=== PATIENT | female | born 1985 | race African-American/Black ===

== ENCOUNTER 2016-09-17 17:57 | Emergency (ER) | payer OTHER ==
[~2016-09-17] VITALS: Ht 165.1 cm; Wt 98.9 kg
[~2016-09-17 17:57] MED LIST: ABILIFY5 MG PO; ACYCLOVIR200 MG; ACYCLOVIR400 MG PO; ATARAX,VISTARIL25 MG PO; BACTRIM,SEPT1 TABLET PO; BENTYL20 MG PO; BUSPAR7.5 MG PO; BUTALB-APAP-CA1 EACH PO; DESYREL 150 MG150 MG PO; DESYREL100 MG PO; DESYREL300 MG PO; DOCUSATE SODIU100 MG PO; FERROUS SULFAT325 MG PO; FIORICET,ESG1 TABLET PO; FLUOXETINE HCL20 MG PO; IBUPROFEN800 MG PO; INDERAL80 MG PO; INDOCIN50 MG PO; KEFLEX500 MG PO; LAMICTAL150 M1 PO; LAMISIL250 MG PO; LAMOTRIGINE100 MG PO; LAMOTRIGINE150 MG PO; NAPROXEN SODIU550 MG PO; NOHOMEMEDS; OXAYDO5 MG PO; OXYCODONE-APAP1 EACH PO; PHENAZOPYRIDIN100 MG PO; PHENERGAN-CODE120 ML PO; PRENATAL TABLE1 EAC3 PO; PROTONIX20 MG PO; PROZAC20 MG PO; REGLAN10 MG PO; ROBAXIN750 MG PO; SERTRALINE HCL50 MG PO; TOPIRAMATE25 MG; TOPIRAMATE25 MG PO; TOPIRAMATE50 MG PO; ZANTAC150 MG PO
[2016-09-17] MEDS ORDERED: ZANTAC150 MG PO (19:08)
[2016-09-17] MEDS ORDERED: PREDNISONE20 MG PO (19:08)
[2016-09-17] MEDS ORDERED: BENADRYL50 MG PO (19:08)
[2016-09-17 19:56] VITALS: BP 117/82
== END 2016-09-17 20:00 | disposition home or self-care (01) ==
LOC: EME 17:57
DX: T78.1XXA Other adverse food reactions, not elsewhere classified, initial encounter (principal); L29.9 Pruritus, unspecified; R21 Rash and other nonspecific skin eruption; Z91.013 Allergy to seafood; Z91.040 Latex allergy status; Z88.6 Allergy status to analgesic agent; Z86.14 Personal history of Methicillin resistant Staphylococcus aureus infection; Z87.891 Personal history of nicotine dependence
CPT/HCPCS: 99281; 99284; J1200; J2930; S0028

== ENCOUNTER 2016-11-24 11:52 | Day surgery (SDC) | payer OTHER ==
[~2016-11-24] VITALS: Ht 165.1 cm; Wt 97.1 kg
[~2016-11-24 11:52] MED LIST changes: +BENADRYL50 MG PO; +FIORICET 50-301 EACH PO; +IRON325 M1 PO; +LAMICTAL100 MG PO; +PREDNISONE20 MG PO
[2016-11-24 12:28] VITALS: BP 126/72
[2016-11-24 13:43] LABS: METH RESISTANT S AUREUS PCR NEGATIVE (NEGATIVE); PROBE CHECK PASS; SPECIMEN PROCESSING CONTROL PASS
[2016-11-24] MEDS ORDERED: COLACE100 MG PO (15:24)
[2016-11-24] MEDS ORDERED: PERCOCET 5/31 TABLET PO (15:24)
[2016-11-24 17:35] VITALS: BP 138/90
[2016-11-24 18:35] VITALS: BP 127/77
[2016-11-25 10:10] LABS: INTERNAL CONTROL VALID? YES
== END 2016-11-24 18:50 | disposition home or self-care (01) ==
LOC: SDC
PROVIDERS: Surgery
PROC: 0WUF4JZ Supplement Abdominal Wall with Synthetic Substitute, Percutaneous Endoscopic Approach (ICD-10-PCS; principal; 2016-11-24)
DX: K42.9 Umbilical hernia without obstruction or gangrene (principal); Q79.59 Other congenital malformations of abdominal wall; D64.9 Anemia, unspecified; E66.9 Obesity, unspecified; Z68.36 Body mass index [BMI] 36.0-36.9, adult; F17.200 Nicotine dependence, unspecified, uncomplicated; Z83.3 Family history of diabetes mellitus; Z80.42 Family history of malignant neoplasm of prostate; Z80.3 Family history of malignant neoplasm of breast; Z82.49 Family history of ischemic heart disease and other diseases of the circulatory system; Z88.8 Allergy status to other drugs, medicaments and biological substances; Z91.040 Latex allergy status
CPT/HCPCS: 84703; 87081; 87641; C1781; J0330; J0690; J1100; J1170; J2250; J2405; J2710; J3010

== ENCOUNTER 2016-11-25 22:50 | Emergency (ER) | payer OTHER ==
[~2016-11-25] VITALS: Ht 165.1 cm; Wt 98.5 kg
[~2016-11-25 22:50] MED LIST changes: +COLACE100 MG PO; +PERCOCET 5/31 TABLET PO
[2016-11-25 23:22] LABS: HEMATOCRIT 37.8 % (36.0-46.0); MCH 31.2 PG (29.0-34.0); MCHC 33.6 G/DL (30.0-36.0); MCV 92.9 FL (83-99); MEAN PLAT.VOLUME 10.6 uM^3 (9.5-12.4); PLATELET COUNT 283 K/uL (156-360); RBC DIS.WIDTH-CV 13.5 % (11.8-14.6); RBC DIS.WIDTH-SD 46.5 % (39-53); RED BLOOD COUNT 4.07 M/uL (3.80-5.20); WHITE BLOOD COUNT 6.9 K/uL (4.1-10.2)
[2016-11-25 23:31] LABS: CHLORIDE 108 mEq/L (99-109); POTASSIUM 3.6 mEq/L (3.7-5.4); SODIUM 140 mEq/L (136-147)
[2016-11-25 23:32] LABS: GLUCOSE 97 mg/dL (70-99)
[2016-11-25 23:34] LABS: ANION GAP 8 MEQ/L (2-14)
[2016-11-25 23:36] LABS: GFR ESTIMATE (CALCULATED) > 59 mL/min/
[2016-11-25 23:37] LABS: UREA NITROGEN (BUN) 9 mg/dL (9-23)
[2016-11-25 23:44] LABS: TROP-I INTERPRETATION NEGATIVE; TROPONIN-I < 0.01 ng/mL (0.0-0.30)
[2016-11-26] MEDS ORDERED: PEPCID20 MG PO (03:46)
[2016-11-26] MEDS ORDERED: MOUTH SORE15 ML MM (03:46)
[2016-11-26 03:48] LABS: TOTAL BILIRUBIN 0.3 mg/dL (0.0-1.0)
[2016-11-26 03:49] LABS: ALKALINE PHOSPHATASE 40 IU/L (3-129)
[2016-11-26 03:52] LABS: DIRECT BILIRUBIN 0.1 mg/dL (0.0-0.3)
[2016-11-26 03:53] LABS: LIPASE 47 U/L (1.0-51.0)
[2016-11-26 04:14] VITALS: BP 114/62
== END 2016-11-26 04:27 | disposition home or self-care (01) ==
LOC: EME 22:50
DX: G89.18 Other acute postprocedural pain (principal); R07.89 Other chest pain; J04.0 Acute laryngitis; K20.9 Esophagitis, unspecified; Z87.891 Personal history of nicotine dependence; Z91.040 Latex allergy status; Z88.5 Allergy status to narcotic agent; Z91.018 Allergy to other foods; Z86.14 Personal history of Methicillin resistant Staphylococcus aureus infection
CPT/HCPCS: 71020; 80048; 80076; 81003; 83690; 84484; 85027; 93005; 99281; 99283

== ENCOUNTER 2016-12-15 13:29 | Emergency (ER) | payer OTHER ==
[~2016-12-15] VITALS: Ht 165.1 cm; Wt 96.0 kg
[~2016-12-15 13:29] MED LIST changes: +MOUTH SORE15 ML MM; +PEPCID20 MG PO
[2016-12-15 14:59] LABS: ADD MIUA? YES; BILIRUBIN NEGATIVE; BLOOD SMALL; COLOR YELLOW ((YELLOW)); GLUCOSE (STRIP) NEGATIVE; KETONES NEGATIVE; LEUKOCYTES NEGATIVE; NITRITE NEGATIVE; PROTEIN (STRIP) NEGATIVE; SPECIFIC GRAVITY 1.024 (1.000-1.030); UROBILINOGEN 0.2 MG/DL (0.2-1.0)
[2016-12-15 15:15] LABS: BACTERIA NONE SEEN /HPF; EPITHELIAL CELLS RARE /HPF; MUCUS TRACE /LPF; UCUL ADDED? NO; WHITE BLOOD CELLS 0-5 /HPF (0-5)
[2016-12-15 15:53] LABS: HEMATOCRIT 34.2 % (36.0-46.0); MCH 30.8 PG (29.0-34.0); MCHC 33.6 G/DL (30.0-36.0); MCV 91.7 FL (83-99); PLATELET COUNT 312 K/uL (156-360); RBC DIS.WIDTH-CV 12.2 % (11.8-14.6); RBC DIS.WIDTH-SD 41.1 % (39-53); RED BLOOD COUNT 3.73 M/uL (3.80-5.20); WHITE BLOOD COUNT 6.5 K/uL (4.1-10.2)
[2016-12-15 16:07] LABS: CHLORIDE 109 mEq/L (99-109); POTASSIUM 3.7 mEq/L (3.7-5.4); SODIUM 140 mEq/L (136-147)
[2016-12-15 16:10] LABS: GLUCOSE 93 mg/dL (70-99)
[2016-12-15 16:11] LABS: ANION GAP 7 MEQ/L (2-14)
[2016-12-15 16:12] LABS: TOTAL BILIRUBIN 0.2 mg/dL (0.0-1.0)
[2016-12-15 16:13] LABS: ALKALINE PHOSPHATASE 48 IU/L (3-129); GFR ESTIMATE (CALCULATED) > 59 mL/min/
[2016-12-15 16:14] LABS: UREA NITROGEN (BUN) 8 mg/dL (9-23)
[2016-12-15 16:24] LABS: QUANTITATIVE HCG < 4.0 MIU/ML
[2016-12-15] MEDS ORDERED: PERCOCET 5/31 TABLET PO (18:58)
[2016-12-15 19:12] VITALS: BP 129/77
[2016-12-18] MEDS ORDERED: FEROSUL325 MG PO (15:20)
[2016-12-18] MEDS ORDERED: PROZAC20 MG PO (15:20)
[2016-12-22] MEDS ORDERED: PERCOCET 5/31 TABLET PO (11:36)
== END 2016-12-15 19:13 | disposition home or self-care (01) ==
LOC: EME 13:29
PROVIDERS: Physician Assistant
DX: K91.872 Postprocedural seroma of a digestive system organ or structure following a digestive system procedure (principal); Y83.8 Other surgical procedures as the cause of abnormal reaction of the patient, or of later complication, without mention of misadventure at the time of the procedure; R11.0 Nausea; R14.0 Abdominal distension (gaseous); K59.00 Constipation, unspecified; Z98.890 Other specified postprocedural states; Z86.14 Personal history of Methicillin resistant Staphylococcus aureus infection; Z72.0 Tobacco use
CPT/HCPCS: 74177; 80053; 81003; 84702; 85027; 99281; 99285; J3010; J7030

== ENCOUNTER → 2016-12-22 | Outpatient (CLI) | payer OTHER ==
[~2016-12-22] MED LIST changes: +FEROSUL325 MG PO
[2016-12-22 09:59] LABS: INTER. NORMALIZED RATIO 1.1; PROTHROMBIN TIME 10.7 (9.2-11.2); PTT 29.4 (25-32)
== END | disposition home or self-care (01) ==
LOC: OPR 08:46 → EDSTATUS 09:00 → OPR 09:00
PROVIDERS: Radiology Diagnostic Radiology
PROC: 0W9F3ZZ Drainage of Abdominal Wall, Percutaneous Approach (ICD-10-PCS; principal; 2016-12-22)
DX: M96.842 Postprocedural seroma of a musculoskeletal structure following a musculoskeletal system procedure (principal)
CPT/HCPCS: 77012; 85610; 85730; 87070; 87075; 87205; J2405; J3010

== ENCOUNTER 2017-02-13 13:27 | Emergency (ER) | payer OTHER ==
[~2017-02-13] VITALS: Ht 165.1 cm; Wt 96.8 kg
[2017-02-13 13:40] VITALS: BP 120/82
[2017-02-13] MEDS ORDERED: LAMOTRIGINE200 MG PO (15:14)
[2017-02-13] MEDS ORDERED: MOTRIN800 MG PO (15:27)
[2017-02-13] MEDS ORDERED: VIBRAMYCIN100 MG PO (15:27)
== END 2017-02-13 15:44 | disposition home or self-care (01) ==
LOC: EME 13:27 → RME 13:27
DX: S00.83XA Contusion of other part of head, initial encounter (principal); L03.211 Cellulitis of face; S01.511A Laceration without foreign body of lip, initial encounter; Y04.2XXA Assault by strike against or bumped into by another person, initial encounter; Z91.040 Latex allergy status; Z88.6 Allergy status to analgesic agent; Z91.013 Allergy to seafood
CPT/HCPCS: 70150; 99281; 99283

== ENCOUNTER → 2017-03-05 | Outpatient (CLI) | payer OTHER ==
[~2017-03-05] VITALS: Ht 165.1 cm; Wt 96.6 kg
[~2017-03-05] MED LIST changes: +LAMICTAL200 MG PO; +LAMOTRIGINE200 MG PO; +MOTRIN800 MG PO; +TYLENOL REGULA325 MG PO; +VIBRAMYCIN100 MG PO
== END | disposition home or self-care (01) ==
LOC: AMB 06:58
DX: K29.70 Gastritis, unspecified, without bleeding (principal); B96.81 Helicobacter pylori [H. pylori] as the cause of diseases classified elsewhere; J44.9 Chronic obstructive pulmonary disease, unspecified; F17.210 Nicotine dependence, cigarettes, uncomplicated; K21.9 Gastro-esophageal reflux disease without esophagitis; E66.9 Obesity, unspecified; Z83.3 Family history of diabetes mellitus; Z80.42 Family history of malignant neoplasm of prostate
CPT/HCPCS: 88305; 88342 TC; J2250; J3010

== ENCOUNTER 2017-05-06 05:30 | Day surgery (SDC) | payer OTHER ==
[~2017-05-06] VITALS: Ht 165.1 cm; Wt 100.1 kg
[~2017-05-06 05:30] MED LIST changes: +ZOVIRAX200 MG PO
[2017-05-06 06:42] VITALS: BP 121/58
[2017-05-06 08:33] LABS: METH RESISTANT S AUREUS PCR NEGATIVE (NEGATIVE)
[2017-05-06 08:36] LABS: PROBE CHECK PASS; SPECIMEN PROCESSING CONTROL PASS
[2017-05-06] MEDS ORDERED: COLACE100 MG PO (09:00)
[2017-05-06] MEDS ORDERED: PERCOCET 5/31 TABLET PO (09:00)
[2017-05-06 10:31] VITALS: BP 121/80
[2017-05-06 11:23] VITALS: BP 107/61
[2017-05-06 11:40] VITALS: BP 108/62
== END 2017-05-06 11:50 | disposition home or self-care (01) ==
LOC: SDC 05:30
PROVIDERS: Surgery
PROC: 0WPG4JZ Removal of Synthetic Substitute from Peritoneal Cavity, Percutaneous Endoscopic Approach (ICD-10-PCS; principal; 2017-05-06)
DX: T85.848A Pain due to other internal prosthetic devices, implants and grafts, initial encounter (principal); Y73.8 Miscellaneous gastroenterology and urology devices associated with adverse incidents, not elsewhere classified; M47.816 Spondylosis without myelopathy or radiculopathy, lumbar region; Z86.14 Personal history of Methicillin resistant Staphylococcus aureus infection; K21.9 Gastro-esophageal reflux disease without esophagitis; E66.9 Obesity, unspecified; Z68.36 Body mass index [BMI] 36.0-36.9, adult; J44.9 Chronic obstructive pulmonary disease, unspecified; F17.210 Nicotine dependence, cigarettes, uncomplicated
CPT/HCPCS: 87641; J0131; J0690; J1100; J1170; J1885; J2250; J2405; J2765; J3010; Q0175

== ENCOUNTER 2017-08-09 07:51 | Emergency (ER) | payer OTHER ==
[~2017-08-09] VITALS: Ht 165.1 cm; Wt 100.8 kg
[~2017-08-09 07:51] MED LIST changes: +NEURONTIN300 MG PO
[2017-08-09] MEDS ORDERED: VENTOLIN HFA18 GM IH (10:19)
[2017-08-09] MEDS ORDERED: ROBITUSSIN DM118 ML PO (10:19)
[2017-08-09] MEDS ORDERED: ZOFRAN ODT4 MG PO (10:19)
[2017-08-09 10:28] VITALS: BP 00/00
== END 2017-08-09 10:37 | disposition home or self-care (01) ==
LOC: EME 07:51
DX: J06.9 Acute upper respiratory infection, unspecified (principal); R11.10 Vomiting, unspecified; F17.200 Nicotine dependence, unspecified, uncomplicated
CPT/HCPCS: 94640; 99281; 99284